=== PATIENT | female | born 1995 | race Caucasian/White ===

== ENCOUNTER 2018-11-07 14:42 | Emergency (ER) | payer BC, MEDICAID ==
[2018-11-07 15:07] VITALS: BP 129/78
--- NOTE | 2018-11-07 16:03 | EDM.PDOC ---
ED HPI GENERAL MEDICAL PROBLEM - General Chief Complaint: ENT Problem Stated Complaint: SORE THROAT Time Seen by Provider: 11/07/18 15:45 Source of Information: Reports: Patient, Old Records, RN History Limitations: Reports: No Limitations - History of Present Illness INITIAL COMMENTS - FREE TEXT/NARRATIVE: 23 yo female here with a sore throat since yesterday. No rash. No cold sx's. Onset: Gradual Onset Date: 11/06/18 Duration: Day(s): (1+), Getting Worse Location: Reports: Neck (throat) Quality: Reports: Sharp Severity: Moderate Improves with: Reports: Medication Worsens with: Reports: Other (time) Context: Reports: Other (uncertain) Associated Symptoms: Reports: Fever/Chills (low grade?). 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 Denies: Ear Pain, Rhinitis Respiratory: Reports: No Symptoms GI/Abdominal: Reports: No Symptoms : Reports: No Symptoms Musculoskeletal: Reports: No Symptoms Skin: Reports: No Symptoms Neurological: Reports: No Symptoms ED EXAM, ENT - Physical Exam Exam: See Below Exam Limited By: No Limitations General Appearance: Alert, WD/WN, No Apparent Distress Eye Exam: Bilateral Eye: Normal Inspection Ears: Normal External Exam, Normal Canal, Hearing Grossly Normal, Normal TMs Nose: Normal Inspection, No Blood Mouth/Throat: Normal Inspection, Normal Lips, Normal Oropharynx Head: Atraumatic, Normocephalic Neck: Normal Inspection, Supple Respiratory/Chest: No Respiratory Distress, Lungs Clear, Normal Breath Sounds, No Accessory Muscle Use Cardiovascular: Regular Rate, Rhythm, No Edema Extremities: Normal Inspection Neurological: Alert, Oriented, CN II-XII Intact, Normal Cognition, No Motor/ Sensory Deficits Psychiatric: Normal Affect, Normal Mood Skin: Warm, Dry, Intact, Normal Color, No Rash, Other (old scars on arms from "cutting". ) Lymphatic: No Adenopathy Course - Vital Signs Last Recorded V/S: Last Vital Signs Temp 36.3 C 11/07/18 15:22 Pulse 108 H 11/07/18 15:22 Resp 16 11/07/18 15:22 BP 129/78 11/07/18 15:22 Pulse Ox 97 11/07/18 15:22 Departure - Departure Time of Disposition: 16:02 Disposition: Home, Self-Care 01 Condition: Good Clinical Impression: Strep tonsillitis - Discharge Information *PRESCRIPTION DRUG MONITORING PROGRAM REVIEWED*: No *COPY OF PRESCRIPTION DRUG MONITORING REPORT IN PATIENT KARLA: No Instructions: Strep Throat, [id number] Referrals: Lorene Delacruz CNM [Primary Care Provider] - Additional Instructions: Take Amoxicillin 875 mg every 12 hrs until gone. Take acetaminophen and/or ibuprofen as needed for pain relief. Drink ample fluids. Wash hands often to reduce the risk of spread. Recheck with your doctor as needed.
== END 2018-11-07 16:20 | disposition home or self-care (01) ==
LOC: JP.ED 14:42
DX: J02.0 Streptococcal pharyngitis (principal); F17.210 Nicotine dependence, cigarettes, uncomplicated
CPT/HCPCS: 87430; 99283

== ENCOUNTER 2019-04-06 03:44 | Emergency (ER) | payer BC ==
[2019-04-06 04:02] VITALS: BP 144/97; PULSE 82
[2019-04-06] MEDS ORDERED: Ondansetron 4 MG Tab.DIS PO ONE (04:05)
--- NOTE | 2019-04-06 04:14 | EDM.PDOC ---
ED HPI GENERAL MEDICAL PROBLEM - General Chief Complaint: ENT Problem Stated Complaint: TOOTHACHE Time Seen by Provider: 04/06/19 04:00 Source of Information: Reports: Patient, Old Records, RN History Limitations: Reports: No Limitations - History of Present Illness INITIAL COMMENTS - FREE TEXT/NARRATIVE: 23 yo female here with dental pain. No fever. Pain began about 10 hrs ago. Taking ibuprofen without adequate relief. No facial swelling yet. Onset: Gradual Onset Date: 04/05/19 Duration: Hour(s):, Getting Worse Location: Reports: Face (right side) Quality: Reports: Ache Severity: Moderate Improves with: Reports: None Worsens with: Reports: Other (time) Context: Reports: Other (see HPI, is overdue for dental work.) Associated Symptoms: Reports: Nausea/Vomiting (no vomiting) Treatments MANAGER SYSTEM: Reports: NSAIDS right side tooth pain Pain Score (Numeric/FACES): 10 - Related Data Allergies Allergy/AdvReac Type Severity Reaction Status Date / Time No Known Allergies Allergy Verified 04/06/19 03:58 Home Meds: Home Meds Amphetamine/Dextroamphetamine [Adderall XR] 20 mg PO DAILY 11/07/18 [History] Amphetamine/Dextroamphetamine [Adderall] 10 mg PO BEDTIME 04/06/19 [History] Past Medical History HEENT History: Reports: Other (See Below) 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 History: 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 Denies: Vomiting Skin: Reports: No Symptoms Neurological: Reports: No Symptoms ED EXAM, ENT - Physical Exam Exam: See Below Exam Limited By: No Limitations General Appearance: Alert, WD/WN, No Apparent Distress Eye Exam: Bilateral Eye: Normal Inspection Ears: Normal External Exam, Normal Canal, Hearing Grossly Normal, Normal TMs Nose: Normal Inspection, No Blood Mouth/Throat: Normal Inspection, Normal Lips, Normal Oropharynx, Dental Abcess, Dental Pain, Dental Tenderness. No: Hoarse Voice, Lip Swelling Head: Atraumatic, Normocephalic Neck: Normal Inspection Extremities: Normal Inspection Neurological: Alert, Oriented, CN II-XII Intact, Normal Cognition, No Motor/ Sensory Deficits Psychiatric: Normal Affect, Normal Mood Skin: Warm, Dry, Intact, Normal Color, No Rash Course - Vital Signs Last Recorded V/S: Last Vital Signs Temp 36.0 C 04/06/19 04:01 Pulse 82 04/06/19 04:01 Resp 20 04/06/19 04:01 BP 144/97 H 04/06/19 04:01 Pulse Ox 100 04/06/19 04:01 - Orders/Labs/Meds Meds: Medications Discontinued Medications Generic Name Dose Route Start Last Admin Trade Name Freq PRN Reason Stop Dose Admin Ondansetron HCl 4 mg 04/06/19 04:05 Zofran Odt PO 04/06/19 04:06 ONETIME ONE Departure - Departure Time of Disposition: 04:20 Disposition: Home, Self-Care 01 Condition: Fair Clinical Impression: Dental abscess - Discharge Information *PRESCRIPTION DRUG MONITORING PROGRAM REVIEWED*: No *COPY OF PRESCRIPTION DRUG MONITORING REPORT IN PATIENT KARLA: No Instructions: Dental Abscess Referrals: PCP,None [Primary Care Provider] - Additional Instructions: Take Penicillin as directed. Don't take more than 600 mg of ibuprofen every 6 hrs and take with food. Add either acetaminophen OR [place] or added pain relief. See your dentist lg. If you can't get into the dentist, then try to work with your doctor to manage your pain issues.
[2019-04-06] MEDS ORDERED: Acetaminophen/HYDROcodone 325-5 MG Tab PO ONE (04:18)
== END 2019-04-06 04:27 | disposition home or self-care (01) ==
LOC: JP.ED 03:44
DX: K04.7 Periapical abscess without sinus (principal); F17.210 Nicotine dependence, cigarettes, uncomplicated
CPT/HCPCS: 99282; A9270

== ENCOUNTER 2022-08-08 14:21 | Emergency (ER) | payer BC ==
[2022-08-08 15:06] VITALS: BP 142/92; PULSE 86
[2022-08-08] MEDS ORDERED: Ketorolac 30 MG/ML SDV IM ONE (17:55)
== END 2022-08-08 18:50 | disposition home or self-care (01) ==
LOC: JP.ED 14:21
DX: M54.41 Lumbago with sciatica, right side (principal); Z87.891 Personal history of nicotine dependence
CPT/HCPCS: 96372; 99283; J1885